=== PATIENT | male | born 1980 | race Caucasian/White ===

== ENCOUNTER 2025-10-01 15:40 | Outpatient (CLI) | payer MEDICARE, MEDICAID ==
--- NOTE | 2025-10-01 16:36 | RADIOLOGY REPORT ---
NON-CONTRAST CHEST COMPUTERIZED TOMOGRAPHY REASON FOR STUDY: Left-sided chest pain and left shoulder pain. Chest pain on breathing. COMPARISON: None TECHNIQUE: The exam was performed on a multidetector spiral scanner. Spiral scans were acquired through the chest. 2-D coronal and sagittal reformatted images were provided. Radiation optimization: All CT scans at this facility use at least one of these dose optimization techniques: Automated exposure control mA and/or kV adjustment per patient size (includes targeted exams where dose is matched to clinical indication) or iterative reconstruction. RADIATION DOSE: CTDI: 15 mGy DLP: 557 mGy-cm FINDINGS: There is no significant airspace disease. There is no significant pulmonary nodule or mass. There is no bronchiectasis or honeycombing. There is no pleural effusion. There is no pneumothorax. The heart is not enlarged. There is no pericardial effusion. No pathologic lymphadenopathy is identified by size criteria. A small gallstone is identified in the gallbladder neck. No other gross abnormality is identified in the visualized upper abdomen. No focal bony abnormality is identified. IMPRESSION: No significant abnormality identified in the chest. Cholelithiasis
--- NOTE | 2025-10-01 16:48 | RADIOLOGY REPORT ---
CLINICAL INDICATION: CHRONIC LEFT SHOULDER PAIN TECHNIQUE: 2 radiographic views of the left shoulder were obtained. Comparison: None FINDINGS/IMPRESSION: There is no evidence of acute fracture or dislocation. The visualized joint space is well maintained. The alignment is anatomical. There is no radiopaque foreign body.
== END 2025-10-01 23:59 | disposition home or self-care (01) ==
LOC: RAD 15:40
PROVIDERS: ATTEND Nurse Practitioner
DX: K80.20 Calculus of gallbladder without cholecystitis without obstruction (principal); M25.512 Pain in left shoulder; R07.1 Chest pain on breathing
CPT/HCPCS: 71250; 73030